=== PATIENT | female | born 1950 | race Caucasian/White ===

== ENCOUNTER 2024-01-27 10:18 | Emergency (ER) | payer MEDICARE, SELFPAY ==
--- NOTE | ~2024-01-27 | XR_ITS ---
EXAMINATION: XR ELBOW, LEFT CLINICAL INFORMATION: Left elbow pain and swelling. COMPARISON: None available. TECHNIQUE: AP, lateral, and oblique views of the left elbow. FINDINGS: Prominent posterior soft tissue swelling and stranding which could represent a contusion/hematoma versus olecranon bursitis. No abnormal soft tissue calcification or radiopaque foreign body. No acute fracture or dislocation. No joint space narrowing or marginal osteophytes. No osseous erosion. No significant joint effusion. XR/XR elbow LT min 3V IMPRESSION: Prominent posterior soft tissue swelling and stranding, which could represent a contusion/hematoma versus olecranon bursitis.
[2024-01-27 10:29] VITALS: BP 101/55; PULSE 96; RESP 18; TEMP 37.2; O2SAT 99; BMI 21.8
[2024-01-27 13:06] LABS: MANUAL DIFF FLAG NO
[2024-01-27 13:08] LABS: Basophils Absolute Auto 0.1 X10*3/uL (0.0-0.2); Basophils Percent Auto 0.6 % (0-2); Eosinophils Absolute Auto 0.1 X10*3/uL (0.0-0.4); Eosinophils Percent Auto 0.8 % (0-4); Hematocrit 44.4 % (37.0-47.0); Hemoglobin 15.4 g/dl (12.0-16.0); Imm Gran Abs Auto 0.03 X10*3/uL (0.00-0.03); Imm Gran Pct Auto 0.3 % (0.0-0.4); Lymphocytes Absolute Auto 1.2 X10*3/uL (1.2-4.9); Lymphocytes Percent Auto 13.7 % (20-40); Mean Corpuscular HGB Conc 34.7 g/dl (31.0-35.0); Mean Corpuscular Hemoglobin 35.5 pg (27.0-33.0); Mean Corpuscular Volume 102.3 fL (80.0-98.0); Mean Platelet Volume 8.3 fL (9.4-12.3); Monocytes Percent Auto 10.8 % (2-11); Neutrophils Absolute Auto 6.6 x10*3/uL (2.0-8.3); Neutrophils Percent Auto 73.8 % (45-73); Platelet Count 228 X10*3/uL (160-400); Red Blood Count 4.34 X10*6/uL (4.20-5.50); Red Cell Distribution Width 13.1 % (11.0-16.0); White Blood Count 8.9 X10*3/uL (4.8-10.8)
[2024-01-27 13:25] LABS: Anion Gap 17 (12-20); Blood Urea Nitrogen 11 mg/dL (9-16); Calcium 9.7 mg/dL (8.4-10.2); Carbon Dioxide 25 mmol/L (22-29); Chloride 100 mmol/L (96-108); Estimated Glomerular Filt Rate > 60; Glucose Random 119 mg/dL (60-115); Potassium 3.4 mmol/L (3.3-5.1); Sodium 139 mmol/L (135-145); Uric Acid 7.6 mg/dL (2.4-5.7)
--- NOTE | 2024-01-27 13:48 | ED_ITS ---
HPI - Skin/Abscess/Foreign Bdy General Chief complaint: Skin/Abscess/Foreign Body Stated complaint: Swelling L elbow Time Seen by Provider: 01/27/24 12:35 Source: patient and family () Mode of arrival: ambulatory Limitations: no limitations History of Present Illness ED Provider: RACIEL QUINONES PA-C HPI narrative: 73-year-old female with past medical history significant for gout presents to the ED today for evaluation of atraumatic left elbow pain/swelling x 24 hours. She reports waking up with pain and swelling to her left elbow yesterday. Denies injury or trauma to the elbow. States she believes an insect may have bit her in her sleep. Notes the area is warm to the touch. She did not take any [id number]-[id number] pain medications for this at home. Denies numbness/tingling/weakness of the upper extremity. Denies fever/chills. Denies known tick bites. Not on anticoagulation. Related Data Previous Rx's ?Medication ?Instructions ?Recorded naproxen 500 mg tablet 500 mg PO Q8-12H PRN pain (scale 01/27/24 score 1-3) #20 tabs prednisone 20 mg tablet 40 mg (2 x 20 mg) PO DAILY 5 days 01/27/24 #10 tabs Allergies Allergy/AdvReac Type Severity Reaction Status Date / Time morphine Allergy Hives Verified 01/27/24 10:32 Sulfa (Sulfonamide Allergy Nausea and Verified 01/27/24 10:32 Antibiotics) Vomiting PMFSH Social History Social History Advance Directives: No Advance Directives Information Provided: Yes Do you have a plan to hurt others: No Plan Physical Exam 2 Vital Signs: Vital Signs: Last Vital Signs Temp 98.5 F 01/27/24 13:57 Pulse 87 01/27/24 13:57 Resp 18 01/27/24 13:57 BP 129/72 01/27/24 13:57 Pulse Ox 98 01/27/24 13:57 O2 Del Method Room Air 01/27/24 10:29 BMI result Body Mass Index 21.8 Vital signs stable Const: General: cooperative, healthy appearing, comfortable and no acute distress Orientation/consciousness: patient oriented x3 Limitations: no limitations HEENT: Head: Yes normal to inspection, Yes No palpable skull fracture present, Yes normocephalic and Yes atraumatic Eyes: General: appearance normal, both eyes and all related structures P upils: Equal, round and reactive pupils present Resp: Effort & Inspection: normal respiratory effort and able to speak in complete sentences Auscultation: clear to auscultation bilaterally Cardio: Rate: regular rate Rhythm: regular rhythm Skin: General skin exam: no rashes or lesions noted Neuro: General: patient oriented x3, gait normal and moves all extremities Cranial nerves: Yes Equal, round and reactive pupils present Extrem: Other: + left elbow with noted swelling and red ness. Full ROM intact to left elbow with minimal pain on flexion. Tender to palpation over left olecranon without palpable deformity, crepitus or fluctuance. No streaking. No noted insect bite. No target lesions. 2+ radial and ulnar pulse intact. Record Cutter strength intact. Sensation intact throughout. Strength intact. Course Course Course Narrative: 1355-- CBC without leukocytosis or left shift. No anemia. H&H stable. Chemistry without acute electrolyte abnormality requiring intervention. Random glucose 119. Uric acid elevated to 7.6. Patient does have a history of gout. X-ray of left elbow showing prominent posterior soft tissue swelling and stranding which may represent contusion/hematoma versus olecranon bursitis. I do not have concern for hematoma however physical exam is consistent with bursitis. Will also treat for gout. Discussed all workup results with patient. Prednisone and naproxen sent to pharmacy. Ben wrap provided. Advised to follow up with PCP. Patient has remained stable throughout ED visit today. Discussed worrisome signs and symptoms and when to return to the ED. All questions answered at this time. Patient is agreeable with disposition and stable for discharge. Medical Decision Making Medical Decision Making MDM Narrative: 73-year-old female with past medical history significant for gout presents to the ED today for evaluation of atraumatic left elbow pain/swelling x 24 hours. Vital signs stable, afebrile. She is nontoxic-appearing and in no acute distress. On exam, left elbow with noted swelling and redness. Full ROM intact to left elbow with minimal pain on flexion. Tender to palpation over left olecranon without palpable deformity, crepitus or fluctuance. No streaking. No noted insect bite. No target lesions. 2+ radial and ulnar pulse intact. Record Cutter strength intact. Sensation intact throughout. Strength intact. Differential diagnosis includes gout, pseudogout, tick/insect bite, bursitis, arthritis. Unlikely septic joint, septic arthritis, fracture, dislocation, neurovascular compromise, threat to limb, compartment syndrome. Plan for basic labs, uric acid, x-ray, re-evaluation. Differential Diagnosis Differential Diagnoses: The differential diagnosis associated with the presentation includes As above Admission/Observation Not indicated Lab Data MDM Lab Attestation statement: I reviewed the patient's lab results. As above 01/27/24 13:02 01/27/24 13:02 Labs: Lab Results 01/27/24 Range/Units 13:02 WBC 8.9 (4.8-10.8) X10*3/uL RBC 4.34 (4.20-5.50) X10*6/uL Hgb 15.4 (12.0-16.0) g/dl Hct 44.4 (37.0-47.0) % MCV 102.3 H (80.0-98.0) fL MCH 35.5 H (27.0-33.0) pg MCHC 34.7 (31.0-35.0) g/dl RDW 13.1 (11.0-16.0) % Plt Count 228 (160-400) X10*3/uL MPV 8.3 L (9.4-12.3) fL Immature Gran % (Auto) 0.3 (0.0-0.4) % Neut % (Auto) 73.8 H (45-73) % Lymph % (Auto) 13.7 L (20-40) % Archer % (Auto) 10.8 (2-11) % Eos % (Auto) 0.8 (0-4) % Baso % (Auto) 0.6 (0-2) % Lymph # (Auto) 1.2 (1.2-4.9) X10*3/uL Archer # (Auto) 1.0 (0.1-1.2) X10*3/uL Eos # (Auto) 0.1 (0.0-0.4) X10*3/uL Baso # (Auto) 0.1 (0.0-0.2) X10*3/uL Abs Immat Gran (auto) 0.03 (0.00-0.03) X10*3/uL Absolute Neuts (auto) 6.6 (2.0-8.3) x10*3/uL Absolute Nucleated RBC 0.000 (0.0-0.012) X10*3/uL Nucleated RBC % (auto) 0.0 (0.0-0.2) /100WBC Sodium 139 (135-145) mmol/L Potassium 3.4 (3.3-5.1) mmol/L Chloride 100 (96-108) mmol/L Carbon Dioxide 25 (22-29) mmol/L Anion Gap 17 (12-20) BUN 11 (9-16) mg/dL Creatinine 0.76 (0.5-1.4) mg/dL Estim Creat Clear Calc 48.0 Estimated GFR > 60 Random Glucose 119 H (60-115) mg/dL Uric Acid 7.6 H (2.4-5.7) mg/dL Calcium 9.7 (8.4-10.2) mg/dL Independent Interpretation I performed an independent interpretation of an: Plain X-Ray Interpretation: X-ray left elbow with posterior soft tissue swelling, agree with radiologist's interpretation. Radiology Impression Discussion of test interpretation with radiology: I have reviewed the radiologist's reading. Radiologist Impression: EXAMINATION: XR ELBOW, LEFT CLINICAL INFORMATION: Left elbow pain and swelling. COMPARISON: None available. TECHNIQUE: AP, lateral, and oblique views of the left elbow. FINDINGS: Prominent posterior soft tissue swelling and stranding which could represent a contusion/hematoma versus olecranon bursitis. No abnormal soft tissue calcification or radiopaque foreign body. No acute fracture or dislocation. No joint space narrowing or marginal osteophytes. No osseous erosion. No significant joint effusion. XR/XR elbow LT min 3V IMPRESSION: Prominent posterior soft tissue swelling and stranding, which could represent a contusion/hematoma versus olecranon bursitis. Independent Historian Clinical information obtained from an independent historian. History obtained from or confirmed by: Spouse () Prescription Management I considered prescription management with: Pain Medication (Naproxen) and Other (Prednisone) Social Determinants Patient?s care significantly limited by Social Determinants of Health including: Other Social Determinant of Health Procedures Orthopedic Splinting/Casting Injury #1: Side: left Upper Extremity Injury Location: elbow Upper Extremity Immobilizer: Ben wrap Critical Care Time Critical Care Time Critical Care Time: No Discharge Plan Discharge Clinical Impression: Olecranon bursitis of left elbow, Gout Patient Disposition: Home, Self-Care Instructions: Low Purine Diet (ED), Elbow Bursitis (ED), Gout (ED) Additional Instructions: You were evaluated in the ED today for left elbow swelling/redness. The x-ray of your left elbow shows possible bursitis. Your blood work also shows elevated uric acid level which can indicate gout flare. Prednisone as a steroid that has been sent to your pharmacy. Take this as prescribed for 5 days. Naproxen as an anti-inflammatory that has been sent to your pharmacy. Take this as needed for pain/discomfort do not take this with other NSAIDs such as ibuprofen as this can increase risk of GI bleeding. You were also provided with Ben wrap to help with compression/swelling. Please follow-up with your primary care provider. Return with new or worsening symptoms. In the case of an emergency call 911. Prescriptions: New prednisone 20 mg tablet 40 mg PO DAILY 5 Days Qty: 10 0RF naproxen 500 mg tablet 500 mg PO Q8-12H PRN (Reason: pain (scale score 1-3)) Qty: 20 0RF Interventions: ED Discharge Assessment Last Done: 01/27/24 13:57 Discharge Date/Time: 01/27/24 14:02 Print Language: Lao
[2024-01-27 13:53] VITALS: BP 129/72; PULSE 87; RESP 18; TEMP 36.9; O2SAT 98
--- NOTE | 2024-01-27 13:53 | PC.NURSE ---
clif wrap applied to left elbow. well tolerated
[2024-01-27 13:57] VITALS: BP 129/72; PULSE 87; RESP 18; TEMP 36.9; O2SAT 98
[2024-01-28 18:19] LABS: Lyme Abs Screen <0.90 index
[2024-01-29 10:38] LABS: A. Phagocytphilium DNA,RT-PCR NOT DETECTED (NOT DETECTED); Babesia Microti DNA, RT-PCR NOT DETECTED (NOT DETECTED); Borrelia Miyamotoi,DNA RT-PCR NOT DETECTED (NOT DETECTED); E.Chaffeensis DNA RT-PCR NOT DETECTED (NOT DETECTED); Lyme(Borrelia ssp)DNA RT-PCR NOT DETECTED (NOT DETECTED)
== END 2024-01-27 14:02 | disposition home or self-care (01) ==
PROVIDERS: Physician Assistant Medical; Emergency Provider Emergency Medicine Emergency Medical Services; PCP Family Medicine
DX: M10.022 Idiopathic gout, left elbow (principal); M25.522 Pain in left elbow
CPT/HCPCS: 36415; 73080; 80048; 84550; 85025; 86617; 86618; 87468; 87469; 87478; 87484; 87798; 99282; 99283